=== PATIENT | male | born 1990 | race Caucasian/White ===

== ENCOUNTER 2020-01-25 10:18 | Emergency (ER) | payer OTHER ==
[~2020-01-25] VITALS: Ht 177.8 cm; Wt 90.9 kg
[2020-01-25] MEDS ORDERED: KETOROLAC TROMETHAMINE 60 MG/2 ML VIAL IM ONE (11:15)
[2020-01-25 11:49] LABS: APPEARANCE,URINE CLEAR (CLEAR); BILIRUBIN,URINE NEGATIVE (NEGATIVE); GLUCOSE, URINE (UA) NEGATIVE (NEGATIVE); KETONES,URINE NEGATIVE (NEGATIVE); LEUKOCYTE ESTERASE ,URINE NEGATIVE (NEGATIVE); NITRATE,URINE NEGATIVE (NEGATIVE); OCCULT BLOOD,URINE NEGATIVE (NEGATIVE); PROTEIN,URINE NEGATIVE (NEGATIVE); UROBILINOGEN,URINE 0.2 mg/dL (<=1.0)
[2020-01-25 13:18] VITALS: BP 133/78
== END 2020-01-25 13:29 | disposition home or self-care (01) ==
LOC: EMS 10:22
DX: M70.62 Trochanteric bursitis, left hip (principal)
CPT/HCPCS: 73503; 81003; 96372; 99284; J1885